=== PATIENT | female | born 1990 | race Hispanic/Latino ===

== ENCOUNTER 2018-09-21 10:17 | Emergency (ER) | payer OTHER ==
[~2018-09-21] VITALS: Ht 162.6 cm; Wt 68.0 kg
[~2018-09-21 10:17] MED LIST: VISTARIL50 MG PO
== END 2018-09-21 10:49 | disposition home or self-care (01) ==
LOC: ED 10:17
DX: H92.02 Otalgia, left ear (principal); R05 Cough

== ENCOUNTER 2021-04-22 17:52 | Inpatient (IN) | payer OTHER ==
[~2021-04-22] VITALS: Ht 162.6 cm; Wt 88.7 kg
--- NOTE | 2021-04-22 22:30 | NUR ---
PT ASSISTED TO THE TOILET WITH HELP FROM THIS HVAC RESIDENTIAL SERVICE TECHNICIAN AND FLOAT HVAC RESIDENTIAL SERVICE TECHNICIAN, PT HAVING NUASA & VOMITING WITH ACTIVITY, RN INFORMED, PT BACK TO BED, VITALS TAKEN, ICE CHIPS AND ICE WATER PROVIDED FOR PT, CALL LIGHT IN REACH, NO FURTHER ASSISTANCE FROM THIS HVAC RESIDENTIAL SERVICE TECHNICIAN NEEDED
--- NOTE | 2021-04-22 22:37 | NUR ---
PT ARRIVES TO FLOOR VIA GURNEY. BEGINS VOMITING WITH MOVEMENT; 500ML EMESIS. PT THEN TO TOILET SBA TO VOID. VSS. IVF INFUSING PER ORDER. 4MG IV ZOFRAN ADMINISTERED. THIS RN REMAINS IN ROOM FOR ASSESSMENT.
--- NOTE | 2021-04-23 00:10 | NUR ---
PT REQUESTING WARM BLANKET, PT NOW NPO STATUS, PT IS AWARE AND ASKED STAFF TO REMOVE WATER, NO FURTHER NEEDS AT THIS TIME
--- NOTE | 2021-04-23 01:48 | NUR ---
CALL LIGHT ANSWERED. SBA TO TOILET TO VOID. PT RETURNED TO BED, REPORTS "BAD PAIN" BUT DECLINES PRN MEDS AT THIS TIME; WOULD LIKE TO WAIT UNTIL ZOFRAN IS AVAILABLE AGAIN PT BELIEVES DILAUDID IS CREATING NAUSEA
--- NOTE | 2021-04-23 03:58 | NUR ---
CALL LIGHT ANSWERED. PT REQUESTS PRN PAIN MEDS. D/T PRIOR BOUTS OF NAUSEA AND VOMITING, 4MG IV ZOFRAN ADMINISTERED PRIOR TO 0.6MG DILAUDID IV. PT UP TO TOILET TO VOID. RATES PAIN 8/10 SINCE IT "WOKE HER UP FROM SLEEPING". PT RETURNED TO BED, CALL LIGHT WITHIN REACH. NO FURTHER NEEDS AT THIS TIME.
--- NOTE | 2021-04-23 07:00 | NUR ---
Report received from Monisha BLACK. Pt resting in bed with eyes closed, respirations even and unlabored, IVF infusing WNL. No needs identified at this time, will continue plan of care.
--- NOTE | 2021-04-23 07:30 | NUR ---
patient in the bed, she got up to use the restroom. patient requested nicotine and tylonal.
--- NOTE | 2021-04-23 09:30 | NUR ---
Assessment complete, pt c/o abdominal pain and headache, nausea. PRN zofran and dilaudid adminsitered. IVF infusing WNL. Preop checklist initiated. Discussed with patient plan of care and she is agreeable at this time. No further needs, call light in reach
--- NOTE | 2021-04-23 10:56 | NUR ---
PT CALLED STATING THEY "HAD AN ACCIDENT". THIS GOVERNMENT PROGRAM MANAGER ENTERED THE ROOM AND HELPED PT GET INTO THE SHOWER. PT HAD HAD AN ACCIDENTAL BM IN BED WHILE SLEEPING. PT NOW UP IN AN INDEPENDENT SHOWER AND LINENS CHANGED. PT PROVIDED WITH PRE SURGICAL WIPE DOWN WIPES AND INSTRUCTIONS. FRESH GOWN GIVEN. NO FURTHER NEEDS AT THIS TIME.
--- NOTE | 2021-04-23 11:06 | NUR ---
Pt alerts this RN of nicotine cravings, discussed with MD and received verbal order for lozenge.
--- NOTE | 2021-04-23 12:30 | NUR ---
Nicotine lozenge administered, pt resting in bed after shower, states no needs at this time. IVF infusing WNL.
--- NOTE | 2021-04-23 15:20 | NUR ---
Discussed plan of care with Dr Mcdermott, verbal orders for advance diet as tolerated and saline lock, monitor patient tonight and potentially imaging tomorrow. Pt updated and agreeable to plan, pt tolerates applesauce and sandwich ordered. Call light in reach.
--- NOTE | 2021-04-23 19:30 | NUR ---
SHIFT REPORT FROM NURSE BROOKS. PT LAYING BED, DENIES NEEDS AT THIS TIME. CALL LIGHT WITHIN REACH
--- NOTE | 2021-04-23 22:00 | NUR ---
IN FOR ASSESSMENT AND TO START NEW IV PREVIOUS IV FLUSHES SLUGGISH. NEW IV PLACE IN RFA. PT REPORTS PAIN 8/10 IN ABDOMEN. PRN TRAMADOL ADMINSTERED. ASSESSMENT OTHERWISE WNL; PT CONTINUES TO HAVE VAGINAL BLEEDING. REPORTS HUNGER. SANDWICH BOX PROVIDED.
--- NOTE | 2021-04-23 23:45 | NUR ---
CALL LIGHT ANSWERED. SBA TO TOILET TO VOID. PT REQUESTS CHICKEN NOODLE SOUP WHICH IS PROVIDED. CALL LIGHT WITHIN REACH
--- NOTE | 2021-04-24 03:29 | NUR ---
ROUNDS: PT APPEARS TO BE SLEEPING WITH EYES CLOSED AND EVEN RR NOTED. CALL LIGHT WITHIN REACH. NO APPARENT NEEDS AT THIS TIME.
--- NOTE | 2021-04-24 06:08 | NUR ---
CALL LIGHT ANSWERED; PT REPORTS 7/10 ABD PAIN AND WOULD LIKE PRN MEDS. PRN TRAMADOL 50MG PO ADMINISTERED AT THIS TIME. VSS. ASSESSMENT COMPLETE. FRESH WATER GIVEN, I&OS DONE. CALL LIGHT WITHIN REACH. NO FURTHER NEEDS AT THIS TIME.
--- NOTE | 2021-04-24 07:10 | NUR ---
Report received from Monisha BLACK. Pt resting in bed with eyes closed, respirations even and unlabored. No needs at this time, will continue plan of care.
--- NOTE | 2021-04-24 08:30 | NUR ---
Rounded on patient who is resting in bed talking on phone. Will return shortly
--- NOTE | 2021-04-24 10:02 | NUR ---
PATIENT AWAKE IN BED. VITALS AND I&OS CHARTED. NEW ATTENDS PROVIDED, GARBAGE EMPTEID. CALL LIGHT IN [facility], NO OTHER NEEDS AT THIS TIEM. DISCHARGE PLANNING IN ROOM NOW.
--- NOTE | 2021-04-24 11:05 | NUR ---
PRN pain medication administered, pt up in shower with DEMARIO Jordan. She states hoping she can "get imaging here soon" so she can return to her kids at home. She states feeling pain with urination, and endorses family hx of hysterectomy in past. This RN reassures patient regarding plan of care. No other needs at this time.
--- NOTE | 2021-04-24 11:20 | NUR ---
Pt lives in an apartment with her 2 children. Mom is currently stay- ing with her children and will stay for a while with pt. Dr. Thornton in during my visit and plans on US today for concern of two months of spotting. Pt does not have a pcp and would like to get established with someone, she has not been able to establish care due to covid. She has been seen at Op clinic from [facility] and I will contact to see if they will accept her. Pt denies needs. Plans on dc to home with mom to assist her.
--- NOTE | 2021-04-24 14:30 | NUR ---
IMAGING AT BEDSIDE NOW
--- NOTE | 2021-04-24 14:59 | NUR ---
Spoke with Marsha at [facility] and faxed face sheet, H&P, and progress notes for pt to establish care with pcp.
--- NOTE | 2021-04-24 15:15 | NUR ---
PRN tramadol administered, pt reports feeling needing additional pain medication in between doses. MD notified and received orders for PRN toradol.
--- NOTE | 2021-04-24 16:18 | NUR ---
Received call from Marsha at [facility] and she will assign pt a pcp. Informed she remains in the hospital at this time. Informed I will send dc summary when pt discharges and call her.
--- NOTE | 2021-04-24 16:57 | NUR ---
PRN toradol administered. Pt ambulates to BR and states has no bleeding "since ultrasound". 900ml void. Radiology report received, phoned and notified.
[2021-04-24] MEDS ORDERED: PERCOCET 5-3251 EACH PO (18:53)
--- NOTE | 2021-04-25 13:31 | NUR ---
Notified by Marsha GASPAR, she was able to schedule pt with Lisa Roman LEARNING MANAGER for May 02 at 1410. Called Lisbeth and notified of appt. She is aware of where they are located as she has gone to the walk in clinic. NOtified to arrive 20 min early for paper work.
== END 2021-04-24 19:15 | disposition home or self-care (01) | DRG 392 ==
LOC: ED 17:52 → MS 22:11
PROVIDERS: ADMIT Surgery; ATTEND Surgery
DX: R10.31 Right lower quadrant pain (principal); N93.9 Abnormal uterine and vaginal bleeding, unspecified; Z88.5 Allergy status to narcotic agent; Z90.49 Acquired absence of other specified parts of digestive tract
CPT/HCPCS: 74177; 76830; 76856; 80053; 81001; 83690; 84703; 85025; J1170; J1885; J2405; J2543; J7030; J7121; Q9967

== ENCOUNTER 2021-10-29 22:20 | Emergency (ER) | payer OTHER ==
[~2021-10-29] VITALS: Ht 162.6 cm; Wt 88.5 kg
[~2021-10-29 22:20] MED LIST changes: +PERCOCET 5-3251 EACH PO
[2021-10-29] MEDS ORDERED: HYDROXYZINE HCL50 MG PO (22:52)
[2021-10-30] MEDS ORDERED: medrol dose pack (00:33)
[2021-10-30] MEDS ORDERED: VENTOLIN HFA18 GM INH (00:33)
== END 2021-10-30 00:36 | disposition home or self-care (01) ==
LOC: ED 22:20
DX: U07.1 COVID-19 (principal); J45.909 Unspecified asthma, uncomplicated; Z88.5 Allergy status to narcotic agent
CPT/HCPCS: 71045; 96372; 99285-25; J1100; U0003

== ENCOUNTER 2022-06-28 15:52 | Emergency (ER) | payer OTHER ==
[~2022-06-28] VITALS: Ht 162.6 cm; Wt 79.4 kg
[~2022-06-28 15:52] MED LIST changes: +HYDROXYZINE HCL50 MG PO; +VENTOLIN HFA18 GM INH; +medrol dose pack
[2022-06-28] MEDS ORDERED: BACTRIM DS TAB1 EACH PO (16:51)
== END 2022-06-28 17:16 ==
LOC: ED 15:52
DX: L02.811 Cutaneous abscess of head [any part, except face] (principal); Z86.14 Personal history of Methicillin resistant Staphylococcus aureus infection; J45.909 Unspecified asthma, uncomplicated; Z88.5 Allergy status to narcotic agent; Z79.899 Other long term (current) drug therapy
CPT/HCPCS: 10060; 99282-25; A9270

== ENCOUNTER 2022-10-19 22:07 | Emergency (ER) | payer OTHER ==
[~2022-10-19] VITALS: Ht 162.6 cm; Wt 79.5 kg
[~2022-10-19 22:07] MED LIST changes: +BACTRIM DS TAB1 EACH PO
[2022-10-19] MEDS ORDERED: LAMOTRIGINE25 MG PO (22:23)
[2022-10-19] MEDS ORDERED: QUETIAPINE FUMA50 M1 PO (22:24)
[2022-10-19] MEDS ORDERED: QUETIAPINE FUM100 MG PO (22:24)
[2022-10-19] MEDS ORDERED: PRILOSEC OTC20 MG PO (23:25)
[2022-10-19] MEDS ORDERED: ANUSOL-HC25 MG PR (23:25)
== END 2022-10-19 23:40 | disposition home or self-care (01) ==
LOC: ED 22:07
DX: K64.8 Other hemorrhoids (principal); J45.909 Unspecified asthma, uncomplicated; Z88.5 Allergy status to narcotic agent; Z79.899 Other long term (current) drug therapy
CPT/HCPCS: 36415; 80053; 85025; 86850; 86900; 86901; 99283

== ENCOUNTER 2023-05-15 20:27 | Emergency (ER) | payer OTHER ==
[~2023-05-15] VITALS: Ht 162.6 cm; Wt 78.0 kg
[~2023-05-15 20:27] MED LIST changes: +ANUSOL-HC25 MG PR; +CARAFATE1 GM PO; +CONSTULOSE10 GM/15 M PO; +LAMOTRIGINE25 MG PO; +PRILOSEC OTC20 MG PO; +PROTONIX40 MG PO; +QUETIAPINE FUM100 MG PO; +QUETIAPINE FUMA50 M1 PO
--- OUTSIDE RECORDS SUMMARY | 2023-05-15 20:35 | XMS ---
PreManage Notification: MARCELINA SALINAS Security Reading Teacher Events 1 event(s) in the past 18 months Most recent security events: Elopement at [facility] 05/14/2022 18:14 - Patient eloped before treatment completed. - Patient with suicidal and/or homicidal ideations eloped. - Patient eloped with IV in place. Details: PATIENT LWBS CRITERIA MET - [facility] - 2 Visits in 30 Days CARE PROVIDERS -Sam- Dentist: Drafter Automotive Design [facility] PHONE: [phone] Mary Foley-Mckenzie Nurse Practitioner: Family Current PHONE: [phone] Yulisa has no Care Guidelines for this patient. E.D. VISIT COUNT (12 MO.) [address] [facility] TOTAL 5 NOTE: Visits indicate total known visits. ED/UCC VISIT TRACKING (12 MO.) 05/15/2023 20:28 [facility] [place] TYPE: Emergency COMPLAINT: - SOB 05/03/2023 23:14 [facility] [place] TYPE: Emergency COMPLAINT: - ABD PAIN DIAGNOSES: - Allergy status to narcotic agent - Epigastric pain - Gastritis, unspecified, without bleeding - Other mcc (current) drug therapy 11/14/2022 23:03 [facility] [place] TYPE: Emergency COMPLAINT: - ABD PAIN DIAGNOSES: - Allergy status to narcotic agent - Constipation, unspecified - Contact with and (suspected) exposure to COVID-19 - Other mcc (current) drug therapy - Unspecified abdominal pain - Unspecified asthma, uncomplicated 10/19/2022 22:08 [facility] [place] TYPE: Emergency COMPLAINT: - BLOODY STOOL DIAGNOSES: - Allergy status to narcotic agent - Hemorrhage of anus and rectum - Other hemorrhoids - Other mcc (current) drug therapy - Unspecified asthma, uncomplicated 06/28/2022 15:53 [facility] [place] TYPE: Emergency COMPLAINT: - SKIN PROBLEM DIAGNOSES: - Allergy status to narcotic agent - Cutaneous abscess of head [any part, except face] - Other mcc (current) drug therapy - Personal history of Methicillin resistant Staphylococcus aureus infection - Unspecified asthma, uncomplicated INPATIENT VISIT TRACKING (12 MO.) No inpatient visits to display in this time frame [id number]
[2023-05-15] MEDS ORDERED: LAMOTRIGINE100 MG PO (20:39)
[2023-05-15 21:39] LABS: INFLUENZA B NAA NEGATIVE (NEGATIVE); RESPIRATORY SYNCYTIAL VIR NAA NEGATIVE (NEGATIVE)
[2023-05-15] MEDS ORDERED: AMOXICILLIN500 MG PO (22:22)
[2023-05-15 22:42] VITALS: BP 124/80
== END 2023-05-15 22:40 | disposition home or self-care (01) ==
LOC: ED 20:27
PROVIDERS: Family Medicine
DX: J02.0 Streptococcal pharyngitis (principal); J45.909 Unspecified asthma, uncomplicated; F31.9 Bipolar disorder, unspecified; Z20.822 Contact with and (suspected) exposure to COVID-19; Z88.5 Allergy status to narcotic agent; Z79.899 Other long term (current) drug therapy
CPT/HCPCS: 87502; 87651; 99283; C9803; U0002

== ENCOUNTER 2023-05-28 15:41 | Emergency (ER) | payer OTHER ==
[~2023-05-28] VITALS: Ht 162.6 cm; Wt 77.6 kg
[~2023-05-28 15:41] MED LIST changes: +AMOXICILLIN500 MG PO; +LAMOTRIGINE100 MG PO
--- OUTSIDE RECORDS SUMMARY | 2023-05-28 15:49 | XMS ---
PreManage Notification: MARCELINA SALINAS Security Power Manager Events 1 event(s) in the past 18 months Most recent security events: Elopement at [facility] 05/14/2022 18:14 - Patient eloped before treatment completed. - Patient with suicidal and/or homicidal ideations eloped. - Patient eloped with IV in place. Details: PATIENT LWBS CRITERIA MET - [facility] - 2 Visits in 30 Days CARE PROVIDERS -Sam- Dentist: Operations Architect [facility] PHONE: [phone] Mary Foley Nurse Practitioner: Family [facility] PHONE: [phone] Yulisa has no Care Guidelines for this patient. E.D. VISIT COUNT (12 MO.) [address] [facility] TOTAL 6 NOTE: Visits indicate total known visits. ED/UCC VISIT TRACKING (12 MO.) 05/28/2023 15:42 [facility] [place] TYPE: Emergency COMPLAINT: - FOOT SWELLING 05/15/2023 20:28 [facility] [place] TYPE: Emergency COMPLAINT: - SOB DIAGNOSES: - Acute pharyngitis, unspecified - Allergy status to narcotic agent - Bipolar disorder, unspecified - Contact with and (suspected) exposure to COVID-19 - Other oil heaterman (current) drug therapy - Streptococcal pharyngitis - Unspecified asthma, uncomplicated 05/03/2023 23:14 [facility] TYPE: Emergency COMPLAINT: - ABD PAIN DIAGNOSES: - Allergy status to narcotic agent - Epigastric pain - Gastritis, unspecified, without bleeding - Other oil heaterman (current) drug therapy 11/14/2022 23:03 [facility] [place] TYPE: Emergency COMPLAINT: - ABD PAIN DIAGNOSES: - Allergy status to narcotic agent - Constipation, unspecified - Contact with and (suspected) exposure to COVID-19 - Other oil heaterman (current) drug therapy - Unspecified abdominal pain - Unspecified asthma, uncomplicated 10/19/2022 22:08 [facility] [place] TYPE: Emergency COMPLAINT: - BLOODY STOOL DIAGNOSES: - Allergy status to narcotic agent - Hemorrhage of anus and rectum - Other hemorrhoids - Other oil heaterman (current) drug therapy - Unspecified asthma, uncomplicated 06/28/2022 15:[address] [facility] [place] TYPE: Emergency COMPLAINT: - SKIN PROBLEM DIAGNOSES: - Allergy status to narcotic agent - Cutaneous abscess of head [any part, except face] - Other oil heaterman (current) drug therapy - Personal history of Methicillin resistant Staphylococcus aureus infection - Unspecified asthma, uncomplicated INPATIENT VISIT TRACKING (12 MO.) No inpatient visits to display in this time frame [id number]
[2023-05-28] MEDS ORDERED: NAPROSYN500 MG PO (16:00)
[2023-05-28 16:10] VITALS: BP 157/97
== END 2023-05-28 16:11 | disposition home or self-care (01) ==
LOC: ED 15:41
DX: M72.2 Plantar fascial fibromatosis (principal); M21.42 Flat foot [pes planus] (acquired), left foot; M21.41 Flat foot [pes planus] (acquired), right foot; J45.909 Unspecified asthma, uncomplicated; Z88.5 Allergy status to narcotic agent; Z79.899 Other long term (current) drug therapy
CPT/HCPCS: 99283

== ENCOUNTER 2023-06-21 11:36 | Emergency (ER) | payer OTHER ==
[~2023-06-21] VITALS: Ht 162.6 cm; Wt 74.6 kg
[~2023-06-21 11:36] MED LIST changes: +NAPROSYN500 MG PO
--- OUTSIDE RECORDS SUMMARY | 2023-06-21 11:51 | XMS ---
PreManage Notification: MARCELINA SALINAS Security Tea Tree Farm Worker Events 1 event(s) in the past 18 months Most recent security events: Elopement at [facility] 05/14/2022 18:14 - Patient eloped before treatment completed. - Patient with suicidal and/or homicidal ideations eloped. - Patient eloped with IV in place. Details: PATIENT LWBS CRITERIA MET - [facility] - 2 Visits in 30 Days CARE PROVIDERS -Sam- Dentist: Reinsurance Analyst [facility] PHONE: [phone] Mary Foley Nurse Practitioner: Family [facility] PHONE: [phone] Yulisa has no Care Guidelines for this patient. E.D. VISIT COUNT (12 MO.) [address] [facility] TOTAL 8 NOTE: Visits indicate total known visits. ED/UCC VISIT TRACKING (12 MO.) 06/21/2023 11:37 [facility] [place] TYPE: Emergency COMPLAINT: - DIZZY, ABD PAIN, HI/LO B/P, CHEST TIGHTNESS 06/20/2023 15:47 [facility] [place] TYPE: Emergency COMPLAINT: - ABDOMINAL PAIN 05/28/2023 15:42 [facility] TYPE: Emergency COMPLAINT: - FOOT SWELLING DIAGNOSES: - Allergy status to narcotic agent - Flat foot [pes planus] (acquired), left foot - Flat foot [pes planus] (acquired), right foot - Other assisted (current) drug therapy - Pain in right foot - Plantar fascial fibromatosis - Unspecified asthma, uncomplicated 05/15/2023 20:28 [facility] TYPE: Emergency COMPLAINT: - SOB DIAGNOSES: - Acute pharyngitis, unspecified - Allergy status to narcotic agent - Bipolar disorder, unspecified - Contact with and (suspected) exposure to COVID-19 - Other assisted (current) drug therapy - Streptococcal pharyngitis - Unspecified asthma, uncomplicated 05/03/2023 23:14 [facility] TYPE: Emergency COMPLAINT: - ABD PAIN DIAGNOSES: - Allergy status to narcotic agent - Epigastric pain - Gastritis, unspecified, without bleeding - Other superintendent container terminal (current) drug therapy 11/14/2022 23:03 [facility] [place] TYPE: Emergency COMPLAINT: - ABD PAIN DIAGNOSES: - Allergy status to narcotic agent - Constipation, unspecified - Contact with and (suspected) exposure to COVID-19 - Other superintendent container terminal (current) drug therapy - Unspecified abdominal pain - Unspecified asthma, uncomplicated 10/19/2022 22:08 [facility] TYPE: Emergency COMPLAINT: - BLOODY STOOL DIAGNOSES: - Allergy status to narcotic agent - Hemorrhage of anus and rectum - Other hemorrhoids - Other assisted (current) drug therapy - Unspecified asthma, uncomplicated 06/28/2022 15:53 [facility] TYPE: Emergency COMPLAINT: - SKIN PROBLEM DIAGNOSES: - Allergy status to narcotic agent - Cutaneous abscess of head [any part, except face] - Other assisted (current) drug therapy - Personal history of Methicillin resistant Staphylococcus aureus infection - Unspecified asthma, uncomplicated INPATIENT VISIT TRACKING (12 MO.) No inpatient visits to display in this time frame [id number]
[2023-06-21 12:01] LABS: BASOPHILS 0.9 % (0-2); EOSINOPHILS 1.8 % (0-6); HEMATOCRIT 40.4 % (35.0-50.0); HEMOGLOBIN 13.5 g/dL (12.0-18.0); LYMPHOCYTES 29.3 % (24-44); MCH 30.3 (27-36); MCHC 33.5 g/dl (30-36); MCV 90.5 fl (81-99); MONOCYTES 8.7 % (0-12); NEUTROPHILS 59.3 % (39-80); PLATELET COUNT 274 K/uL (140-440); RBC 4.46 M/ul (4.3-5.7); RDW 14.3 (10.5-15.0)
[2023-06-21 12:15] LABS: ALBUMIN 3.2 g/dL (3.4-5.0); ALBUMIN/GLOBULIN RATIO 1.03 (1.1-2.4); BILIRUBIN, TOTAL 0.1 ng/dL (0.2-1.0); BUN/CREATININE RATIO 13.33 (6.0-28.6); CREATININE, SERUM 1.05 mg/dL (0.55-1.02); PROTEIN, TOTAL 6.3 g/dL (6.4-8.2)
[2023-06-21 13:16] LABS: BILIRUBIN, URINE NEGATIVE (negative); BLOOD/HGB, URINE TRACE-I (Negative); KETONE, URINE NEGATIVE (Negative); LEUK ESTERASE, URINE NEGATIVE (negative); NITRITE, URINE NEGATIVE (negative)
[2023-06-21 13:30] LABS: RED BLOOD CELLS, URINE 0-1 /hpf (0-5)
[2023-06-21 13:31] LABS: BACTERIA, URINE NONE SEEN /hpf (negative); CASTS, URINE NONE SEEN \\lpf; COLLECTION TYPE, URINE CLEAN CATCH; CRYSTALS, URINE NONE SEEN (0-1+); EPITHELIAL CELLS, URINE SQUAMOUS 1+ /lpf (0-1+); REFLEX CULTURE, URINE No (No); WHITE BLOOD CELLS, URINE 0-1 /HPF (0-5)
[2023-06-21] MEDS ORDERED: ONDANSETRON ODT8 MG PO (13:40)
[2023-06-21 13:50] VITALS: BP 116/76
== END 2023-06-21 13:50 | disposition home or self-care (01) ==
LOC: ED 11:36
PROVIDERS: Emergency Medicine
DX: K29.00 Acute gastritis without bleeding (principal); J45.909 Unspecified asthma, uncomplicated; F31.9 Bipolar disorder, unspecified; Z88.5 Allergy status to narcotic agent; Z79.899 Other long term (current) drug therapy
CPT/HCPCS: 36415; 80053; 81001; 84703; 85025; 96374; 99284-25; J2405

== ENCOUNTER 2024-06-28 18:19 | Emergency (ER) | payer OTHER ==
[~2024-06-28] VITALS: Ht 162.6 cm; Wt 88.0 kg
--- OUTSIDE RECORDS SUMMARY | ~2024-06-28 | XMS | Continuity of Care Document ---
Demographics + + + | Address | [address] | | | [place] [address] | + + + | Preferred Language | Unknown | + + + | Marital Status | Unknown | + + + | Catholic Affiliation | Unknown | + + + | Race | Unknown | + + + | Ethnic Group | or | + + + Author + + + | Author | [facility] | + + + | Organization | [facility] | + + + | Address | [address] | | | [place] [address] | + + + | Phone | | + + + Care Team Providers + + + + | Care Resolution Manager Name | Role | Phone | + + + + Unavailable | Unavailable | + + + + Allergies No information. Encounters No information. Functional Status No information. Immunizations No information. Medications No information. Problems + + + + | date | description | facility | + + + + | 2024-03-30 14:36:09 | Earache | [facility] | + + + + | 2024-03-30 15:56:06 | Localized enlarged lymph | [facility] | | | nodes | | + + + + | 2024-05-10 21:40:51 | Syphilis, unspecified | [facility] | + + + + | 2024-05-10 21:40:51 | Chronic viral hepatitis C | [facility] | + + + + | 2024-05-10 21:40:51 | Unspecified viral | [facility] | | | hepatitis C without hepatic | | | | coma | | + + + + | 2024-05-10 21:40:51 | Contact with and | [facility] | | | (suspected) exposure to | | | | viral hepatitis | | + + + + Procedures No information. Results/Labs No information. Social History +--------+ + + | date | description | facility | +--------+ + + Vital Signs No information."
[~2024-06-28 18:19] MED LIST changes: +AMOX TR-K CLV1 EAC1 PO; +ONDANSETRON ODT8 MG PO
--- OUTSIDE RECORDS SUMMARY | 2024-06-28 18:26 | XMS ---
PreManage Notification: MARCELINA SALINAS Security Band Leader Events 1 event(s) in the past 18 months Most recent security events: Elopement at [facility] 06/20/2023 15:47 - Patient eloped with IV in place. - Patient eloped before treatment completed. - Patient with suicidal and/or homicidal ideations eloped. Details: Patient LWBS CRITERIA MET - Group Notification CARE PROVIDERS -[facility]+ Dentist: Test Desk Trouble Locator [facility] PHONE: [phone] -Sam- Dentist: Test Desk Trouble Locator [facility] PHONE: [phone] [facility]: Test Desk Trouble Locator [facility] PHONE: [phone] ASSOCIATES, [facility]: [facility] [place] [facility] PHONE: [phone] Yulisa has no Care Guidelines for this patient. Joseph VISIT COUNT (12 MO.) 3 [facility] TOTAL 4 NOTE: Visits indicate total known visits. ED/UCC VISIT TRACKING (12 MO.) 06/28/2024 18:20 [facility] [place] TYPE: Emergency COMPLAINT: - POSS UTI 03/30/2024 14:[facility] TYPE: Emergency COMPLAINT: - ear infection DIAGNOSES: - Localized enlarged lymph nodes - ear infection - Earache 10/22/2023 18:21 [facility] TYPE: Emergency COMPLAINT: - ABDOMINAL PAIN DIAGNOSES: - Procedure and treatment not carried out due to patient leaving prior to being seen by health care provider - Unspecified abdominal pain 10/12/2023 20:35 [facility] [place] TYPE: Emergency COMPLAINT: - RECTAL BLEEDING DIAGNOSES: - Allergy status to narcotic agent - Bipolar disorder, unspecified - Constipation, unspecified - Hemorrhage of anus and rectum - Unspecified asthma, uncomplicated - Unspecified hemorrhoids INPATIENT VISIT TRACKING (12 MO.) No inpatient visits to display in this time frame [email or web address]
[2024-06-28] MEDS ORDERED: BUSPIRONE HCL15 MG PO (19:04)
[2024-06-28] MEDS ORDERED: LAMOTRIGINE200 MG PO (19:04)
[2024-06-28] MEDS ORDERED: ATOMOXETINE HC100 MG PO (19:04)
[2024-06-28] MEDS ORDERED: QUETIAPINE FUMA50 MG PO (19:04)
[2024-06-28] MEDS ORDERED: OMEPRAZOLE20 MG PO (19:04)
[2024-06-28] MEDS ORDERED: NICOTINE BC (19:05)
[2024-06-28 19:23] LABS: BILIRUBIN, URINE NEGATIVE (negative); BLOOD/HGB, URINE SMALL (Negative); KETONE, URINE NEGATIVE (Negative); LEUK ESTERASE, URINE NEGATIVE (negative); NITRITE, URINE NEGATIVE (negative); PH, URINE 5.5 (5-7)
[2024-06-28] MEDS ORDERED: PHENAZOPYRIDINE HCL 95 MG TAB PO ONE (19:30)
[2024-06-28 19:34] LABS: BACTERIA, URINE RARE /hpf (negative); CASTS, URINE NONE SEEN \\lpf; CRYSTALS, URINE NONE SEEN (0-1+); EPITHELIAL CELLS, URINE SQUAMOUS 1+ /lpf (0-1+)
[2024-06-28 19:35] LABS: COLLECTION TYPE, URINE CLEAN CATCH; REFLEX CULTURE, URINE No (No)
[2024-06-28 20:15] LABS: SOURCE, WET MOUNT VAGINAL
[2024-06-28 20:16] LABS: BASOPHILS 1.5 % (0-2); EOSINOPHILS 1.1 % (0-6); HEMATOCRIT 41.2 % (35.0-50.0); HEMOGLOBIN 13.6 g/dL (12.0-18.0); LYMPHOCYTES 29.1 % (24-44); MCH 30.2 (27-36); MCHC 33.1 g/dl (30-36); MCV 91.4 fl (81-99); MONOCYTES 7.9 % (0-12); NEUTROPHILS 60.4 % (39-80); PLATELET COUNT 279 K/uL (140-440); RBC 4.51 M/ul (4.3-5.7); RDW 13.8 (10.5-15.0)
[2024-06-28 20:16] LABS: BACTERIA, WET MOUNT 2+ (NEGATIVE); CLUE CELLS, WET MOUNT NEGATIVE (NEGATIVE); EPITHELIAL CELLS, WET MOUNT 1+ (NEGATIVE); TRICHOMONAS, WET MOUNT NEGATIVE (NEGATIVE); YEAST, WET MOUNT POSITIVE (NEGATIVE)
[2024-06-28 20:17] LABS: RBC, WET MOUNT NEGATIVE (NEGATIVE)
[2024-06-28 20:18] LABS: WBC, WET MOUNT 1+ (NEGATIVE)
[2024-06-28 21:18] LABS: N. GONORRRHOEAE BY PCR NOT DETECTED (NOT DETECT)
[2024-06-28 21:19] LABS: ALBUMIN 3.7 g/dL (3.4-5.0); ALBUMIN/GLOBULIN RATIO 1.12 (1.1-2.4); ANION GAP 12.6 (7-21); BILIRUBIN, TOTAL 0.3 ng/dL (0.2-1.0); BUN/CREATININE RATIO 12.58 (6.0-28.6); CALCIUM 8.6 mg/dL (8.5-10.1); CREATININE, SERUM 1.43 mg/dL (0.55-1.02); POTASSIUM 3.6 mmol/L (3.5-5.1)
[2024-06-28] MEDS ORDERED: FLUCONAZOLE 150 MG TAB PO ONE (21:30)
[2024-06-28] MEDS ORDERED: FLUCONAZOLE150 MG PO (21:36)
[2024-06-28] MEDS ORDERED: PYRIDIUM100 MG PO (21:36)
[2024-06-28 21:47] VITALS: BP 132/91
== END 2024-06-28 21:48 | disposition home or self-care (01) ==
LOC: ED 18:19
PROVIDERS: Internal Medicine
DX: N83.292 Other ovarian cyst, left side (principal); D25.1 Intramural leiomyoma of uterus; B37.31 Acute candidiasis of vulva and vagina; Z88.5 Allergy status to narcotic agent; Z79.899 Other long term (current) drug therapy
CPT/HCPCS: 36415; 76830; 76856; 80053; 81001; 84703; 85025; 87210; 99284-25